=== PATIENT | female | born 1970 | race Caucasian/White ===

== ENCOUNTER → 2021-06-21 | Outpatient (CLI) | payer BC | END | disposition home or self-care (01) | LOC: US 13:59 | PROVIDERS: ATTEND Internal Medicine | DX: D11.0 Benign neoplasm of parotid gland (principal); K11.1 Hypertrophy of salivary gland; R68.2 Dry mouth, unspecified ==

== ENCOUNTER → 2022-02-21 | Outpatient (CLI) | payer BC | END | disposition home or self-care (01) | LOC: US 02:16 | PROVIDERS: ATTEND Otolaryngology | DX: R59.0 Localized enlarged lymph nodes (principal); K11.8 Other diseases of salivary glands ==

== ENCOUNTER → 2023-01-08 | Outpatient (CLI) | payer BC | END | disposition home or self-care (01) | LOC: LAB 00:20 → CT 00:20 | PROVIDERS: ATTEND Internal Medicine | DX: G31.9 Degenerative disease of nervous system, unspecified (principal); Z86.16 Personal history of COVID-19 ==

== ENCOUNTER → 2023-05-16 | Outpatient (CLI) | payer BC | END | disposition home or self-care (01) | LOC: CT 01:21 | PROVIDERS: ATTEND Internal Medicine | DX: J34.2 Deviated nasal septum (principal); R60.0 Localized edema; R09.82 Postnasal drip; J34.89 Other specified disorders of nose and nasal sinuses; J32.0 Chronic maxillary sinusitis ==